=== PATIENT | female | born 1945 | race Caucasian/White ===

== ENCOUNTER 2017-04-22 07:14 | Outpatient (CLI) | payer OTHER ==
[~2017-04-22 07:14] MED LIST: INTEGRA F CAPS1 EACH PO; PERCOCET 5-3251 EACH PO; PROBIOTIC & AC1 EACH PO
== END 2017-04-22 07:32 | disposition home or self-care (01) ==
LOC: LAB 07:14
DX: C18.2 Malignant neoplasm of ascending colon (principal); R59.0 Localized enlarged lymph nodes

== ENCOUNTER 2017-04-22 07:17 | Outpatient (CLI) | payer OTHER | END 2017-04-22 07:38 | disposition home or self-care (01) | LOC: RAD 07:17 | DX: C18.2 Malignant neoplasm of ascending colon (principal); R59.0 Localized enlarged lymph nodes ==

== ENCOUNTER 2017-04-22 07:19 | Outpatient (CLI) | payer OTHER | END 2017-04-22 07:35 | disposition home or self-care (01) | LOC: EKG 07:19 | DX: C18.2 Malignant neoplasm of ascending colon (principal); R59.0 Localized enlarged lymph nodes ==

== ENCOUNTER → 2017-04-26 | Day surgery (SDC) | payer OTHER | END | disposition home or self-care (01) | LOC: ADM 04-22 07:30 → CIR.AMB 05:51 | DX: C18.2 Malignant neoplasm of ascending colon (principal); R59.0 Localized enlarged lymph nodes | CPT/HCPCS: 36561; C1751 ==

== ENCOUNTER 2017-05-05 08:32 | Outpatient (CLI) | payer OTHER | END 2017-05-05 08:55 | disposition home or self-care (01) | LOC: LAB 08:32 | DX: C18.2 Malignant neoplasm of ascending colon (principal) ==

== ENCOUNTER 2017-05-05 08:47 | Outpatient (CLI) | payer OTHER | END 2017-05-05 08:54 | disposition home or self-care (01) | LOC: RAD 08:47 → EKG 08:47 → RAD 08:54 | DX: C18.2 Malignant neoplasm of ascending colon (principal) ==

== ENCOUNTER 2017-05-05 12:23 | Inpatient (IN) | payer OTHER ==
[~2017-05-05] VITALS: Ht 157.5 cm; Wt 47.2 kg
== END 2017-05-11 15:58 | disposition home or self-care (01) | DRG 200 ==
LOC: ER 12:23 → SURG 13:18 → SEC-K 13:18 → SURG 23:17
PROC: 4A033R1 Measurement of Arterial Saturation, Peripheral, Percutaneous Approach (ICD-10-PCS; principal; 2017-05-05)
PROC: 4A12X4Z Monitoring of Cardiac Electrical Activity, External Approach (ICD-10-PCS; 2017-05-06)
PROC: BW24ZZZ Computerized Tomography (CT Scan) of Chest and Abdomen (ICD-10-PCS; 2017-05-09)
DX: J95.811 Postprocedural pneumothorax (principal); C18.2 Malignant neoplasm of ascending colon; K56.690 Other partial intestinal obstruction; E86.0 Dehydration

== ENCOUNTER 2018-05-08 06:23 | Day surgery (SDC) | payer OTHER | END 2018-05-08 11:11 | disposition home or self-care (01) | LOC: AMB-ENDOS 06:23 → CIR.AMB 09:45 → AMB-ENDOS 11:11 | DX: D12.3 Benign neoplasm of transverse colon (principal) ==

== ENCOUNTER 2018-06-09 09:52 | Outpatient (CLI) | payer OTHER | END 2018-06-09 10:02 | disposition home or self-care (01) | LOC: TOM 09:52 | DX: C18.2 Malignant neoplasm of ascending colon (principal) ==

== ENCOUNTER 2018-06-13 13:48 | Outpatient (CLI) | payer OTHER | END 2018-06-13 14:12 | disposition home or self-care (01) | LOC: NUCLEAR 13:48 | DX: M81.0 Age-related osteoporosis without current pathological fracture (principal); Z13.820 Encounter for screening for osteoporosis ==

== ENCOUNTER 2018-12-09 16:51 | Emergency (ER) | payer OTHER ==
[~2018-12-09] VITALS: Ht 157.5 cm; Wt 67.1 kg
== END 2018-12-09 18:02 | disposition home or self-care (01) ==
LOC: ER 16:51
DX: S70.372A Other superficial bite of left thigh, initial encounter (principal); S60.372A Other superficial bite of left thumb, initial encounter; W54.0XXA Bitten by dog, initial encounter; Y93.89 Activity, other specified; Y92.89 Other specified places as the place of occurrence of the external cause; Y99.8 Other external cause status

== ENCOUNTER → 2019-05-01 | Outpatient (CLI) | payer OTHER | END | disposition home or self-care (01) | LOC: RAD 10:32 | DX: H25.042 Posterior subcapsular polar age-related cataract, left eye (principal) ==

== ENCOUNTER 2020-03-04 09:29 | Outpatient (CLI) | payer OTHER | END 2020-03-04 09:35 | disposition home or self-care (01) | LOC: LAB 09:29 | PROVIDERS: ATTEND Radiology Diagnostic Radiology | DX: C18.2 Malignant neoplasm of ascending colon (principal) ==

== ENCOUNTER 2020-03-05 08:26 | Outpatient (CLI) | payer OTHER | END 2020-03-05 08:30 | disposition home or self-care (01) | LOC: TOM 08:26 | PROVIDERS: ATTEND Internal Medicine | DX: K57.90 Diverticulosis of intestine, part unspecified, without perforation or abscess without bleeding (principal); C18.2 Malignant neoplasm of ascending colon; Z51.11 Encounter for antineoplastic chemotherapy ==

== ENCOUNTER 2021-07-11 14:45 | Emergency (ER) | payer OTHER ==
[~2021-07-11] VITALS: Ht 157.5 cm; Wt 58.1 kg
[2021-07-11] MEDS ORDERED: NORFLEX100MG PO (17:52)
[2021-07-11] MEDS ORDERED: KETO10TA2 PO (17:52)
== END 2021-07-11 17:58 | disposition home or self-care (01) ==
LOC: ER 14:45
DX: M54.31 Sciatica, right side (principal)

== ENCOUNTER 2021-08-17 10:22 | Outpatient (CLI) | payer OTHER ==
[~2021-08-17 10:22] MED LIST changes: +KETO10TA2 PO; +NORFLEX100MG PO
== END 2021-08-17 10:35 | disposition home or self-care (01) ==
LOC: MAMO-SONO 10:22
PROVIDERS: ATTEND Internal Medicine
DX: C18.2 Malignant neoplasm of ascending colon (principal)

== ENCOUNTER 2021-08-19 07:35 | Outpatient (CLI) | payer OTHER | END 2021-08-19 07:42 | disposition home or self-care (01) | LOC: TOM 07:35 | PROVIDERS: ATTEND Internal Medicine | DX: C18.2 Malignant neoplasm of ascending colon (principal) | CPT/HCPCS: 71275 ==

== ENCOUNTER 2021-09-04 12:35 | Outpatient (CLI) | payer OTHER | END 2021-09-04 12:53 | disposition home or self-care (01) | LOC: SONOGRAMA 12:35 | PROVIDERS: ATTEND Surgery | DX: N60.11 Diffuse cystic mastopathy of right breast (principal); N60.12 Diffuse cystic mastopathy of left breast ==

== ENCOUNTER 2021-10-23 06:43 | Day surgery (SDC) | payer OTHER ==
[~2021-10-23] VITALS: Ht 157.5 cm; Wt 55.3 kg
== END 2021-10-23 21:30 | disposition home or self-care (01) ==
LOC: CIR.AMB 06:43
PROVIDERS: ATTEND Surgery
DX: D05.11 Intraductal carcinoma in situ of right breast (principal); Z17.0 Estrogen receptor positive status [ER+]; R59.0 Localized enlarged lymph nodes; Z88.8 Allergy status to other drugs, medicaments and biological substances; G43.909 Migraine, unspecified, not intractable, without status migrainosus; Z85.038 Personal history of other malignant neoplasm of large intestine; Z92.21 Personal history of antineoplastic chemotherapy
CPT/HCPCS: 19301; 19281; 38525; 78195; A9541; L8699

== ENCOUNTER 2022-05-31 09:29 | Outpatient (CLI) | payer OTHER | END 2022-05-31 10:00 | disposition home or self-care (01) | LOC: MAMO-SONO 09:29 | DX: C50.411 Malignant neoplasm of upper-outer quadrant of right female breast (principal); Z12.31 Encounter for screening mammogram for malignant neoplasm of breast; N60.11 Diffuse cystic mastopathy of right breast; N60.12 Diffuse cystic mastopathy of left breast ==

== ENCOUNTER 2022-12-21 13:17 | Outpatient (CLI) | payer OTHER | END 2022-12-21 13:24 | disposition home or self-care (01) | LOC: NUCLEAR 13:17 | PROVIDERS: ATTEND Internal Medicine | DX: Z13.820 Encounter for screening for osteoporosis (principal) ==

== ENCOUNTER 2023-06-01 07:10 | Outpatient (CLI) | payer OTHER | END 2023-06-01 07:12 | disposition home or self-care (01) | LOC: MAMO-SONO 07:10 | PROVIDERS: ATTEND Internal Medicine | DX: N60.11 Diffuse cystic mastopathy of right breast (principal); N60.12 Diffuse cystic mastopathy of left breast; Z12.31 Encounter for screening mammogram for malignant neoplasm of breast; C50.411 Malignant neoplasm of upper-outer quadrant of right female breast ==

== ENCOUNTER 2024-03-31 14:36 | Emergency (ER) | payer OTHER ==
[~2024-03-31] VITALS: Ht 157.5 cm; Wt 51.3 kg
[2024-03-31] MEDS ORDERED: DEXAMETHASONE SODIUM PHOSPHATE 4 MG/ML VIAL IM STA (17:05)
[2024-03-31] MEDS ORDERED: METOCLOPRAMIDE HCL 5 MG/ML VIAL IM STA (17:06)
[2024-03-31] MEDS ORDERED: SUMATRIPTAN SUCCINATE 6 MG/0.5 ML VIAL SUBCUTANEO STA (17:07)
[2024-03-31] MEDS ORDERED: KETOROLAC TROMETHAMINE 30 MG VIAL IM STA (17:08)
[2024-03-31] MEDS ORDERED: NAPR500T14 PO (18:14)
== END 2024-03-31 18:48 | disposition home or self-care (01) ==
LOC: ER 14:38
DX: R51.9 Headache, unspecified (principal); Z88.8 Allergy status to other drugs, medicaments and biological substances

== ENCOUNTER 2024-06-05 09:38 | Outpatient (CLI) | payer OTHER ==
[~2024-06-05 09:38] MED LIST changes: +NAPR500T14 PO
== END 2024-06-05 09:42 | disposition home or self-care (01) ==
LOC: MAMO-SONO 09:38
PROVIDERS: ATTEND Internal Medicine
DX: N60.11 Diffuse cystic mastopathy of right breast (principal); N60.12 Diffuse cystic mastopathy of left breast; Z12.31 Encounter for screening mammogram for malignant neoplasm of breast

== ENCOUNTER 2024-07-02 10:48 | Emergency (ER) | payer OTHER ==
[~2024-07-02] VITALS: Ht 157.5 cm; Wt 53.1 kg
== END 2024-07-02 12:26 | disposition home or self-care (01) ==
LOC: ER 10:51
DX: H61.22 Impacted cerumen, left ear (principal); Z88.8 Allergy status to other drugs, medicaments and biological substances

== ENCOUNTER → 2024-07-09 | Emergency (ER) | payer OTHER ==
[~2024-07-09] VITALS: Ht 157.5 cm; Wt 53.5 kg
== END | disposition home or self-care (01) ==
LOC: ER 11:23
DX: H61.22 Impacted cerumen, left ear (principal); Z88.8 Allergy status to other drugs, medicaments and biological substances; Z85.038 Personal history of other malignant neoplasm of large intestine